=== PATIENT | female | born 1945 | race Caucasian/White ===

== ENCOUNTER 2016-08-28 10:49 | Observation (INO) ==
--- NOTE | 2016-08-28 10:55 | Emergency Department Note ---
Disposition Clinical Impression: Urinary tract infection, Hyperglycemia, Bradycardia, Frail elderly, Leukocytosis, Weakness, CAD (coronary artery disease), Cough Disposition: Admitted As Inpatient Referrals: Clifton Shannon Jr, MD [Primary Care Provider] - Forms: ED Satisfaction Letter General Adult HPI - General Chief complaint: ED Urogenital-Female Stated complaint: passing blood Time Seen by Provider: 08/28/16 10:55 Source: patient, family Limitations: no limitations - History of Present Illness HPI Narrative: 71-year-old female reports emergency department complaining of discolored urine and burning urination. The patient denies any abdominal pain. There is no history of back pain or flank pain. No vomiting or diarrhea. The patient has had no chest pain or shortness of breath but does describe a cough. She has had a runny nose and nasal congestion. Her relatives wonder if she has " walking pneumonia". There is no history of leg swelling or pain or coughing up blood. No fevers. No trouble walking talking hearing seeing or speaking, there is no history or and anticoagulation therapy. She states that her urine looked bloody. She has never had a kidney stone. She denies any pain. The patient describes urinary symptomatology for the last several days. There is no history of acute back pain, no weakness or numbness in the arms or legs, no confusion or any other complaint or concern. Pain Scale: 8 - Related Data Previous Rx's Medication Instructions Recorded Ciprofloxacin HCl [Cipro] 500 mg PO 1-2XD #20 tablet 02/02/15 Hydrocodone/Acetaminophen [[place] 1 tab PO Q6H PRN #20 tab 02/02/15 5-325 Tablet] Allergies Allergy/AdvReac Type Severity Reaction Status Date / Time Sulfa (Sulfonamide Allergy Hives Verified 02/02/15 10:57 Antibiotics) All systems ED: reviewed and negative except as stated. Past Medical History - Past Medical History Medical history: Reports: hyperlipidemia, hypertension, myocardial infarction Surgical history: Reports: cholecystectomy, other Psychiatric history: Reports: no psych history - Social History Smoking Status: Former smoker Smokeless Tobacco Status: No Alcohol use: Reports: none Drug use: Reports: none Physical Exam - General Limitations: no limitations General appearance: alert, in no apparent distress - Head Head exam: atraumatic, normocephalic, normal inspection - Eye Eye exam: Present: normal appearance, PERRL, EOMI. Absent: scleral icterus, conjunctival injection, miosis, mydriasis - ENT ENT exam: normal exam, normal oropharynx, mucous membranes moist - Neck Neck exam: Present: normal inspection, full ROM, trachea midline. Absent: meningismus - Chest Chest inspection: Present: symmetric chest wall rise. Absent: tenderness - Respiratory Respiratory exam: Present: normal lung sounds bilaterally. Absent: respiratory distress, prolonged expiratory phase - Abdominal Exam Abdominal exam: Present: soft, Non-Tender, normal bowel sounds. Absent: tenderness, distention, guarding, rebound, rigidity, pulsatile mass - Extremities Exam Extremities exam: Present: normal inspection, full ROM, normal capillary refill. Absent: tenderness, pedal edema, joint swelling, calf tenderness - Expanded Lower Extremity Exam Lower leg exam: Absent: Homans' sign Neurovascular/Tendon exam: Present: normal capillary refill. Absent: motor deficit, sensory deficit, tendon deficit, extremity cold to touch, pallor - Back Exam Back exam: Present: normal inspection, full ROM. Absent: tenderness, CVA tenderness (R), CVA tenderness (L), vertebral tenderness - Neurological Exam Neurological exam: Present: alert, oriented X3, CN II-XII intact. Absent: motor sensory deficit - Psychiatric Psychiatric exam: Present: normal affect, normal mood - Skin Skin exam: Present: warm, dry, intact, normal color. Absent: rash, cyanosis, diaphoresis, erythema, pallor, mottled Course Vital Signs Temperature 97.6 F 08/28/16 10:51 Pulse Rate 76 08/28/16 10:51 Respiratory Rate 18 08/28/16 10:51 Blood Pressure 175/95 08/28/16 10:51 O2 Sat by Pulse Oximetry 97 08/28/16 10:51 Temperature 97.6 F 08/28/16 10:51 Pulse Rate 49 08/28/16 13:31 Respiratory Rate 18 08/28/16 13:31 Blood Pressure 149/65 08/28/16 13:31 O2 Sat by Pulse Oximetry 93 08/28/16 13:31 Oxygen Delivery Oxygen Delivery Room Air Medical Decision Making - MDM Narrative Medical decision making narrative: The patient is elderly, she has a history of coronary artery disease and is significantly bradycardic in the ED. She has been feeling weak and has evident urinary changes suggestive of significant infection. She has a leukocytosis as well as a urinalysis which is so bloody and discolored but it cannot be properly evaluated on microscopy. Urine cultures were sent. IV access was established. Fluids and antibiotics were given. Based on the patient's age, multiple comorbidities, significant UTI, and sustained bradycardia, I felt it appropriate to admit the patient to the hospital. The patient does take a beta gayle. I discussed the case with the hospitalist operations inspector who ihas accepted the patient to their care. The patient is currently stable. She is not describing chest pain but has had a significant cough. - Lab Data Lab results reviewed: Yes I reviewed the patient's lab results. Result diagrams: 08/28/16 11:42 08/28/16 11:42 Lab Results 08/28/16 08/28/16 08/28/16 Range/Units 11:12 11:42 11:42 WBC 14.4 H (4.3-11.1) K/mcL RBC 5.03 H (3.82-4.97) M/mcL Hgb 15.0 (11.5-15.4) g/dL Hct 44.1 (35.3-44.9) % MCV 87.7 (83.0-100.0) fL MCH 29.8 (28.0-33.3) pg MCHC 34.0 (31.6-35.5) g/dL RDW 12.7 (11.5-14.5) % Plt Count 214 (140-400) K/mcL MPV 10.5 (9.4-12.4) fL Immature Gran % 0.3 (0-4) % Seg Neutrophils % 56.7 % Lymphocytes % 31.9 % Monocytes % 6.8 % Eosinophils % 3.9 % Basophils % 0.4 % Neutrophils # 8.1 (1.6-8.9) K/mcL Lymphocytes # 4.6 (0.6-4.6) K/mcL Monocytes # 1.0 (0.0-1.3) K/mcL Eosinophils # 0.6 (0.0-0.6) K/mcL Basophils # 0.1 (0.0-0.2) K/mcL Sodium 141 (136-145) mEq/L Potassium 3.7 (3.5-4.5) mEq/L Chloride 105 (98-109) mEq/L Carbon Dioxide 28 (19-29) mEq/L BUN 12 (7-20) mg/dL Creatinine 0.77 (0.57-1.11) mg/dL Est GFR ( Amer) > 60 (> 60) Est GFR (Non-Af Amer) > 60 (> 60) BUN/Creatinine Ratio 16 (6-26) Glucose 151 H (70-99) mg/dL Calculated Osmolality 295 (280-300) Lactic Acid (0.5-2.2) mmol/L Calcium 9.4 (8.6-10.8) mg/dL Creatine Kinase 109 (29-168) Units/L Troponin I (0-0.03) ng/mL C-Reactive Protein 2 (Less than 5) mg/L B-Natriuretic Peptide (0-100) pg/mL Urine Color Brown (Yellow) Urine Clarity Cloudy A (Clear) Urine pH 6.0 (5.0-8.0) pH Units Ur Specific [place] 1.020 (1.010-1.025) Urine Protein 100 H (Neg-Trace) mg/dL Urine Glucose (UA) Normal (Normal) mg/dL Urine Ketones Negative (Negative) mg/dL Urine Blood Large H (Negative) Urine Nitrite Negative (Negative) Urine Bilirubin Negative (Negative) Urine Urobilinogen Normal (Normal) mg/dL Ur Leukocyte Esterase Small H (Negative) Ur Culture Indicated? YES A (NO) 08/28/16 08/28/16 08/28/16 Range/Units 11:42 11:42 11:42 WBC (4.3-11.1) K/mcL RBC (3.82-4.97) M/mcL Hgb (11.5-15.4) g/dL Hct (35.3-44.9) % MCV (83.0-100.0) fL MCH (28.0-33.3) pg MCHC (31.6-35.5) g/dL RDW (11.5-14.5) % Plt Count (140-400) K/mcL MPV (9.4-12.4) fL Immature Gran % (0-4) % Seg Neutrophils % % Lymphocytes % % Monocytes % % Eosinophils % % Basophils % % Neutrophils # (1.6-8.9) K/mcL Lymphocytes # (0.6-4.6) K/mcL Monocytes # (0.0-1.3) K/mcL Eosinophils # (0.0-0.6) K/mcL Basophils # (0.0-0.2) K/mcL Sodium (136-145) mEq/L Potassium (3.5-4.5) mEq/L Chloride (98-109) mEq/L Carbon Dioxide (19-29) mEq/L BUN (7-20) mg/dL Creatinine (0.57-1.11) mg/dL Est GFR ( Amer) (> 60) Est GFR (Non-Af Amer) (> 60) BUN/Creatinine Ratio (6-26) Glucose (70-99) mg/dL Calculated Osmolality (280-300) Lactic Acid 2.1 (0.5-2.2) mmol/L Calcium (8.6-10.8) mg/dL Creatine Kinase (29-168) Units/L Troponin I 0.01 (0-0.03) ng/mL C-Reactive Protein (Less than 5) mg/L B-Natriuretic Peptide 66 (0-100) pg/mL Urine Color (Yellow) Urine Clarity (Clear) Urine pH (5.0-8.0) pH Units Ur Specific [place] (1.010-1.025) Urine Protein (Neg-Trace) mg/dL Urine Glucose (UA) (Normal) mg/dL Urine Ketones (Negative) mg/dL Urine Blood (Negative) Urine Nitrite (Negative) Urine Bilirubin (Negative) Urine Urobilinogen (Normal) mg/dL Ur Leukocyte Esterase (Negative) Ur Culture Indicated? (NO) - Radiology Data Radiology results reviewed: Yes I reviewed the patient's radiology results.
[2016-08-28 11:26] LABS: Bilirubin,Urine Negative (Negative); Blood,Urine Large (Negative); Clarity,Urine Cloudy (Clear); Glucose,Urine (UA) Normal (Normal); Ketones,Urine Negative (Negative); Leukocyte Esterase,Urine Small (Negative); Nitrite,Urine Negative (Negative); Protein,Urine 100 mg/dL (Neg-Trace); Urobilinogen,Urine Normal (Normal)
[2016-08-28 11:27] LABS: Color,Urine Brown (Yellow)
[2016-08-28 11:59] LABS: Basophils # 0.1 K/mcL (0.0-0.2); Basophils % 0.4 %; Eosinophils # 0.6 K/mcL (0.0-0.6); Eosinophils % 3.9 %; Hematocrit 44.1 % (35.3-44.9); Immature Granulocytes % 0.3 % (0-4); Lymphocytes # 4.6 K/mcL (0.6-4.6); Lymphocytes % 31.9 %; Mean Corpuscular Hemoglobin 29.8 pg (28.0-33.3); Mean Corpuscular Volume 87.7 fL (83.0-100.0); Mean Platelet Volume 10.5 fL (9.4-12.4); Monocytes % 6.8 %; Neutrophils # 8.1 K/mcL (1.6-8.9); Platelet Count 214 K/mcL (140-400); Red Blood Count 5.03 M/mcL (3.82-4.97); Red Cell Distribution Width 12.7 % (11.5-14.5); Segmented Neutrophils % 56.7 %
[2016-08-28 12:15] LABS: BUN/Creatinine Ratio 16 (6-26); Blood Urea Nitrogen 12 mg/dL (7-20); C-Reactive Protein 2 mg/L (Less than 5); Calcium 9.4 mg/dL (8.6-10.8); Carbon Dioxide 28 mEq/L (19-29); Chloride 105 mEq/L (98-109); Creatine Kinase 109 Units/L (29-168); Glucose 151 mg/dL (70-99); Osmolality,Calculated 295 (280-300); Potassium 3.7 mEq/L (3.5-4.5); Sodium 141 mEq/L (136-145); eGFR For African Americans > 60 (> 60); eGFR For Non-African Americans > 60 (> 60)
[2016-08-28] MEDS ORDERED: Naloxone 0.4 MG/ML INJ IVP PRN (16:17)
[2016-08-28] MEDS ORDERED: Acetaminophen 325 MG TABLET PO PRN (16:17)
[2016-08-28] MEDS ORDERED: Nitroglycerin 0.4 MG TAB.SUBL SL PRN (16:19)
[2016-08-28] MEDS ORDERED: Albuterol 2.5 MG/3 ML NEBULIZER IH PRN (16:23)
--- NOTE | 2016-08-28 16:27 | Internal Med History&Physical ---
<Cher Trejo - Last Filed: 08/28/16 16:51> Date of Encounter: 08/28/16 Time of Encounter: 16:24 Assessment and Plan (1) Urinary tract infection Current visit: Yes Status: Acute Patient reports dysuria for the last 2-3 days, with blood in her urine this morning. UA positive for infection. No flank pain or CVA tenderness. WBC elevated to 14.4, afebrile. Hold plavix for hematuria. IV fluids 0.9NS at 75mL/hr Rocephin IVPB daily Qualifiers: Urinary tract infection type: acute cystitis Hematuria presence: with hematuria Qualified Code(s): N30.01 - Acute cystitis with hematuria (2) Cough Current visit: Yes Status: Acute Patient reporting productive cough and congestion for the last 2-3 days along with some shortness of breath. Lungs with expiratory rhonchi on exam. CXR show no acute cardiopulmonary disease. She is satting 94-97% on room air. Patient with significant smoking history, but has never been diagnosed with COPD. Will treat her with duoneb treatments QID Albuterol nebulizer Q2hr PRN titrate oxygen to maintain O2 saturation > 92%. (3) Bradycardia Current visit: Yes Status: Acute Patient noted to have bradycardia with HR in 40s-50s. Patient asymptomatic, denies any lightheadedness, dizzyness, palpitations. Upon review of records, patient's heart rate has been bradycardic consistently over the last few years with 05/20/15 HR 46, 01/06/16 HR 53 and 07/07/16 HR of 54. Patient on metoprolol 50mg BID. 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 (4) CAD (coronary artery disease) Current visit: Yes Status: Acute Patient with history of NM and stents to RCA in 2012. She denies any chest pain. She is on aspirin, plavix, metoprolol, and lipitor. Holding metoprolol for bradycardia. Hold plavix for hematuria. She is over 3 years out from her stent and may not need to continue Plavix. Continue other home doses of medications. Qualifiers: Coronary Disease-Associated Artery/Lesion type: [place] artery [place] vs. transplanted heart: [place] heart Associated angina: angina presence unspecified Qualified Code(s): I25.10 - Atherosclerotic heart disease of [place] coronary artery without angina pectoris (5) Borderline diabetes Current visit: Yes Status: Acute Patient reports she is "borderline" diabetic. Glucose 151 on Chemistry labs today. Check Hgb A1c diabetic diet check blood sugars ACHS sliding scale correction dose hypoglycemic protocol. (6) DVT prophylaxis Current visit: Yes Status: Acute Ambulate with assistance anti-embolic stockings pharmacologic prophylaxis contraindicated in active bleed (hematuria) Internal Medicine - H&P: HPI Chief complaint: blood in urine, cough Admitted From: Emergency Dept Plans for Post Hospital Care: Home History of present illness: Ms. Hernandez is a 71 year old female with hypertension, hyperlipidemia, coronary artery disease, borderline diabetes who presents to the emergency department today with complaints of blood in her urine. She reports that for the past 2-3 days she has been having pain and burning with urination in addition to that she is complaining of congestion and runny nose and productive cough for the last 2-3 days as well as some shortness of breath. Today when she woke up she was having bloody urine and that when she decided to come to the emergency department. She denies any chest pain or palpitations, she denies any headaches or lightheadedness. She does report decreased appetite over the last few days as well. Evaluation in the emergency department revealed elevated white blood cell count of 14.4. Urinalysis was positive for UTI. Troponin was negative at 0.01, BNP was normal at 66. Lactate was mildly elevated at 2.1. She was noted to be bradycardic with heart rate in the 40s to 50s. On review of previous records it appears that her heart rate always runs in the 40s to 50s at outpatient visits. On exam, patient is alert and oriented, in no acute distress. Lungs have bilateral rhonchi and expiration. Heart has regular rhythm. Bradycardia. Abdomen is soft, nontender. Past Med Surg Social Fam HX - Past Medical History Medical history: coronary artery disease, hyperlipidemia, hypertension, myocardial infarction Psychiatric history: no psych history - Past Surgical History Surgical History: angioplasty/stent, cholecystectomy, other - Social History Smoking Status: Former smoker (45 pack year history) Smokeless Tobacco Status: No Alcohol use: none Drug use: none - Family History Mother Name: Lyubov Dunn Age: 65 Family Member Ethnicity: Non- Living Status: Age at : 65 Cause of : stomach cancer Maternal Grandfather Living Status: Hx Family Cancer: Yes Sister Living Status: Still Living Hx Family Cardiac Disorders: Yes Internal Medicine - H&P: Meds Aspirin Enteric Coated [Aspirin EC] 81 mg PO DAILY 08/28/16 [History] Atorvastatin Calcium [Lipitor] 80 mg PO HS 08/28/16 [History] Cholecalciferol (D-3) [Vitamin D] 1,000 unit PO DAILY 08/28/16 [History] Clopidogrel [Plavix] 75 mg PO DAILY 08/28/16 [History] Hydrochlorothiazide 25 mg PO DAILY 08/28/16 [History] Metoprolol [Lopressor] 50 mg PO BID 08/28/16 [History] Nitroglycerin [Nitrostat] 0.4 mg SL Q5M PRN 08/28/16 [History] [place]-3/Dha/Epa/Fish Oil [Fish Oil 1,000 mg Softgel] 1,000 mg PO DAILY 08/28/16 [History] Vitamin A 10,000 unit PO DAILY 08/28/16 [History] Allergies Sulfa (Sulfonamide Antibiotics) Allergy (Verified 02/02/15 10:57) Hives All Systems PM: A 10-system review of systems was performed and is negative for pertinent findings except as documented above in the HPI. - Constitutional Constitutional: no chills, no fever(s), no night sweats - EENT Eyes: no change in vision, no discharge, no pain, no photophobia Ears: no ear discharge, no ear pain, no tinnitus Nose, mouth and throat: nasal congestion, nasal discharge, no dysphagia, no neck pain, no sore throat - Cardiovascular Cardiovascular ROS IM: dyspnea, no chest pain, no diaphoresis, no lightheadedness, no palpitations, no syncope - Respiratory Respiratory: cough, dyspnea, excessive phlegm production, change in phlegm color , no wheezing - Gastrointestinal Gastrointestinal: no abdominal pain, no diarrhea, no hematemesis, no hematochezia, no melena, no nausea, no vomiting - Genitourinary Genitourinary: dysuria, hematuria, no change in urinary stream, no flank pain - Musculoskeletal Musculoskeletal ROS IM: no numbness, no tingling - Integumentary Integumentary IM: no rash, no unusual bruising - Neurological Neurological ROS: no confusion, no convulsions, no focal weakness, no numbness, no tingling, no tremor(s) - Hematologic/Lymphatic Hematologic/Lymphatic: no easy bruising - Constitutional Vitals: Temp Pulse Resp BP Pulse Ox 97.6 F 46 18 143/73 96 08/28/16 10:51 08/28/16 14:30 08/28/16 15:49 08/28/16 15:49 08/28/16 15:47 General appearance: Present: A&O X 3, pleasant, no acute distress - Head Head exam: Present: atraumatic, normocephalic - Eye Eye exam: Present: PERRL, conjuntiva pink, sclera anicteric Pupils: Present: PERRL - Neck Neck exam general surgery: Present: supple, trachea midline. Absent: lymphadenopathy - Respiratory Respiratory exam: Present: rhonchi. Absent: accessory muscle use, rales, wheezes - Cardiovascular Cardiovascular exam: Present: bradycardia, +S1, +S2. Absent: diastolic murmur, gallop, rubs, systolic murmur - GI/Abdominal GI/Abdominal exam: Present: normal bowel sounds, soft, no peritoneal signs. Absent: distended, tenderness - Extremities Exam Extremities exam: Present: warm, radial pulses palpable and symetrical. Absent : calf tenderness, cyanotic, pedal edema - Neurological Exam Neurological exam: Present: CN II-XII intact, oriented X3, no focal deficits. Absent: facial droop, speech deficit - Skin Skin exam: Present: dry, intact Internal Med - H&P Results - Labs CBC & Chem 7: 08/28/16 11:42 08/28/16 11:42 Labs: All Lab Results (24 Hours) 08/28/16 08/28/16 08/28/16 Range/Units 11:12 11:42 11:42 WBC 14.4 H (4.3-11.1) K/mcL RBC 5.03 H (3.82-4.97) M/mcL Hgb 15.0 (11.5-15.4) g/dL Hct 44.1 (35.3-44.9) % MCV 87.7 (83.0-100.0) fL MCH 29.8 (28.0-33.3) pg MCHC 34.0 (31.6-35.5) g/dL RDW 12.7 (11.5-14.5) % Plt Count 214 (140-400) K/mcL MPV 10.5 (9.4-12.4) fL Immature Gran % 0.3 (0-4) % Seg Neutrophils % 56.7 % Lymphocytes % 31.9 % Monocytes % 6.8 % Eosinophils % 3.9 % Basophils % 0.4 % Neutrophils # 8.1 (1.6-8.9) K/mcL Lymphocytes # 4.6 (0.6-4.6) K/mcL Monocytes # 1.0 (0.0-1.3) K/mcL Eosinophils # 0.6 (0.0-0.6) K/mcL Basophils # 0.1 (0.0-0.2) K/mcL Sodium 141 (136-145) mEq/L Potassium 3.7 (3.5-4.5) mEq/L Chloride 105 (98-109) mEq/L Carbon Dioxide 28 (19-29) mEq/L BUN 12 (7-20) mg/dL Creatinine 0.77 (0.57-1.11) mg/dL Est GFR ( Amer) > 60 (> 60) Est GFR (Non-Af Amer) > 60 (> 60) BUN/Creatinine Ratio 16 (6-26) Glucose 151 H (70-99) mg/dL Calculated Osmolality 295 (280-300) Lactic Acid (0.5-2.2) mmol/L Calcium 9.4 (8.6-10.8) mg/dL Creatine Kinase 109 (29-168) Units/L Troponin I (0-0.03) ng/mL C-Reactive Protein 2 (Less than 5) mg/L B-Natriuretic Peptide (0-100) pg/mL Urine Color Brown (Yellow) Urine Clarity Cloudy A (Clear) Urine pH 6.0 (5.0-8.0) pH Units Ur Specific [place] 1.020 (1.010-1.025) Urine Protein 100 H (Neg-Trace) mg/dL Urine Glucose (UA) Normal (Normal) mg/dL Urine Ketones Negative (Negative) mg/dL Urine Blood Large H (Negative) Urine Nitrite Negative (Negative) Urine Bilirubin Negative (Negative) Urine Urobilinogen Normal (Normal) mg/dL Ur Leukocyte Esterase Small H (Negative) Ur Culture Indicated? YES A (NO) 08/28/16 08/28/16 08/28/16 Range/Units 11:42 11:42 11:42 WBC (4.3-11.1) K/mcL RBC (3.82-4.97) M/mcL Hgb (11.5-15.4) g/dL Hct (35.3-44.9) % MCV (83.0-100.0) fL MCH (28.0-33.3) pg MCHC (31.6-35.5) g/dL RDW (11.5-14.5) % Plt Count (140-400) K/mcL MPV (9.4-12.4) fL Immature Gran % (0-4) % Seg Neutrophils % % Lymphocytes % % Monocytes % % Eosinophils % % Basophils % % Neutrophils # (1.6-8.9) K/mcL Lymphocytes # (0.6-4.6) K/mcL Monocytes # (0.0-1.3) K/mcL Eosinophils # (0.0-0.6) K/mcL Basophils # (0.0-0.2) K/mcL Sodium (136-145) mEq/L Potassium (3.5-4.5) mEq/L Chloride (98-109) mEq/L Carbon Dioxide (19-29) mEq/L BUN (7-20) mg/dL Creatinine (0.57-1.11) mg/dL Est GFR ( Amer) (> 60) Est GFR (Non-Af Amer) (> 60) BUN/Creatinine Ratio (6-26) Glucose (70-99) mg/dL Calculated Osmolality (280-300) Lactic Acid 2.1 (0.5-2.2) mmol/L Calcium (8.6-10.8) mg/dL Creatine Kinase (29-168) Units/L Troponin I 0.01 (0-0.03) ng/mL C-Reactive Protein (Less than 5) mg/L B-Natriuretic Peptide 66 (0-100) pg/mL Urine Color (Yellow) Urine Clarity (Clear) Urine pH (5.0-8.0) pH Units Ur Specific [place] (1.010-1.025) Urine Protein (Neg-Trace) mg/dL Urine Glucose (UA) (Normal) mg/dL Urine Ketones (Negative) mg/dL Urine Blood (Negative) Urine Nitrite (Negative) Urine Bilirubin (Negative) Urine Urobilinogen (Normal) mg/dL Ur Leukocyte Esterase (Negative) Ur Culture Indicated? (NO) - Diagnostic Studies Chest x-ray Additional comments: Chest X-Ray 08/28/16 11:18 IMPRESSION: Stable exam. No acute cardiopulmonary findings. D/ / Adelina Becker MD / Adelina Becker MD Interpreting Provider: Adelina Becker MD <RandaJaspreet T - Last Filed: 08/28/16 17:45> Date of Encounter: 08/28/16 Internal Medicine - H&P: HPI History of present illness: Ms. Hernandez is a 71 year old female All Systems PM: A 10-system review of systems was performed and is negative for pertinent findings except as documented above in the HPI. - Constitutional Vitals: Temp Pulse Resp BP Pulse Ox 97.4 F L 72 16 149/84 94 08/28/16 16:17 08/28/16 16:17 08/28/16 16:17 08/28/16 16:17 08/28/16 16:17 Internal Med - H&P Results - Labs CBC & Chem 7: 08/28/16 11:42 08/28/16 11:42 - Attending Attestation I examined this patient and my medical decision-making was reviewed with the PAINT SPECIALIST/PA/Advanced Practice Nurse/Resident Physician. I agree with the documented findings, disposition and treatment plan as described except to the extent set forth below. 71 F with HTN, HLD, CAD s/p NM on b-blockers presented with symptoms and signs of hemorrhagic cystitis. Labs and imaging suggest UTI. 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
[2016-08-28] MEDS ORDERED: *HR* Dextrose 50 % in Water (Syg) 50 ML SYRINGE IVP PRN (16:32)
[2016-08-28] MEDS ORDERED: D5% in Water 1,000 ML IVC PRN (16:32)
[2016-08-28] MEDS ORDERED: Dextrose Gel 15 GM PO PRN ×2 (16:32)
[2016-08-28] MEDS: Insulin LISPRO 300 UNITS/3 ML VIAL SQ SCH ×2 (17:12→21:28)
[2016-08-28] MEDS: 0.9 % Sodium Chloride 1,000 ML IVC SCH (17:22)
[2016-08-28] MEDS ORDERED: 0.9 % Sodium Chloride 500 ML IVC ONE (17:45)
[2016-08-28] MEDS: Ipratropium/Albuterol Neb 3 ML IH SCH ×2 (20:26→21:24)
[2016-08-29] MEDS: Ipratropium/Albuterol Neb 3 ML IH SCH ×4 (04:22→22:57)
[2016-08-29 04:49] LABS: Basophils # 0.1 K/mcL (0.0-0.2); Basophils % 0.5 %; Eosinophils # 0.4 K/mcL (0.0-0.6); Eosinophils % 3.9 %; Immature Granulocytes % 0.2 % (0-4); Lymphocytes % 48.1 %; Mean Corpuscular HGB Conc 33.8 g/dL (31.6-35.5); Mean Corpuscular Hemoglobin 30.2 pg (28.0-33.3); Mean Corpuscular Volume 89.2 fL (83.0-100.0); Mean Platelet Volume 10.7 fL (9.4-12.4); Monocytes % 9.9 %; Neutrophils # 3.9 K/mcL (1.6-8.9); Platelet Count 183 K/mcL (140-400); Red Blood Count 4.37 M/mcL (3.82-4.97); Red Cell Distribution Width 12.8 % (11.5-14.5); Segmented Neutrophils % 37.4 %
[2016-08-29 04:59] LABS: Hemoglobin 13.2 g/dL (11.5-15.4)
[2016-08-29 05:00] LABS: Hemoglobin A1C 6.9 %
[2016-08-29 05:08] LABS: BUN/Creatinine Ratio 21 (6-26); Blood Urea Nitrogen 16 mg/dL (7-20); Carbon Dioxide 24 mEq/L (19-29); Chloride 107 mEq/L (98-109); Glucose 147 mg/dL (70-99); Osmolality,Calculated 298 (280-300); Potassium 3.8 mEq/L (3.5-4.5); Sodium 142 mEq/L (136-145); eGFR For African Americans > 60 (> 60); eGFR For Non-African Americans > 60 (> 60)
[2016-08-29] MEDS: (Omega-3/Dha/Epa/Fish Oil [Fish Oil 1,000 Mg Softgel] PO SCH (08:40)
[2016-08-29] MEDS: Insulin LISPRO 300 UNITS/3 ML VIAL SQ SCH ×4 (08:43→21:50)
[2016-08-29] MEDS: 0.9 % Sodium Chloride 1,000 ML IVC SCH (08:45)
[2016-08-29] MEDS: hydroCHLOROthiazide 25 MG TABLET PO SCH (08:46)
[2016-08-29] MEDS: Aspirin Enteric Coated 81 MG Tablet PO SCH (08:46)
--- NOTE | 2016-08-29 10:37 | Internal Med Progress Note ---
<Raeann Escalante - Last Filed: 08/29/16 16:39> Date of Encounter: 08/29/16 Time of Encounter: 09:50 - Assessment and plan (1) Urinary tract infection Current Visit: Yes Status: Acute Assessment and plan: Suggested by clinical sx dysuria, UCx with LKE, Ucx did not show any organisms. 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 Cont to monitor. (3) CAD (coronary artery disease) Current Visit: Yes Status: Acute Assessment and plan: Cont ASA, Statin. BB on hold due to bradycardia. Qualifiers: Coronary Disease-Associated Artery/Lesion type: [place] artery [place] vs. transplanted heart: [place] heart Associated angina: angina presence unspecified Qualified Code(s): I25.10 - Atherosclerotic heart disease of [place] coronary artery without angina pectoris - Subjective Interval history: Pt seen/eval, endorses dysuria with burning sensation, no fever/chills, nvd. Does have some dyspnea and wheeze. - Constitutional Vitals: Temp Pulse Resp BP Pulse Ox 97.7 F 65 18 132/65 98 08/29/16 07:25 08/29/16 07:25 08/29/16 07:25 08/29/16 07:25 08/29/16 07:25 General appearance: Present: A&O X 3, pleasant, no acute distress - Head Head exam: Present: atraumatic, normocephalic - Eye Eye exam: Present: EOMI, sclera anicteric - ENT ENT exam: Present: mucous membranes moist - Neck Neck exam general surgery: Present: supple, trachea midline - Respiratory Respiratory exam: Present: wheezes (scant). Absent: accessory muscle use, rhonchi - Cardiovascular Cardiovascular exam: Present: bradycardia, +S1, +S2. Absent: JVD - GI/Abdominal GI/Abdominal exam: Present: soft, no peritoneal signs - Extremities Exam Extremities exam: Present: warm, radial pulses palpable and symetrical Internal Medicine: Result - Labs CBC & Chem 7: 08/29/16 04:32 08/29/16 04:32 Labs: Short CBC 08/29/16 Range/Units 04:32 WBC 10.5 (4.3-11.1) K/mcL Hgb 13.2 D (11.5-15.4) g/dL Hct 39.0 (35.3-44.9) % Plt Count 183 (140-400) K/mcL Neutrophils # 3.9 (1.6-8.9) K/mcL BMP 08/29/16 04:32 Sodium 142 Potassium 3.8 Chloride 107 Carbon Dioxide 24 BUN 16 Creatinine 0.78 Glucose 147 H Calcium 9.0 - VTE Documentation of Mechanical Device: Graduated compression elastic hosiery Consult Discharge Plan - Plan Referrals: Clifton Shannon Jr, MD [Primary Care Provider] - <Luciano Curry P - Last Filed: 08/29/16 19:03> Date of Encounter: 08/29/16 - Constitutional Vitals: Temp Pulse Resp BP Pulse Ox 97.6 F 63 18 145/83 94 08/29/16 15:58 08/29/16 15:58 08/29/16 16:29 08/29/16 16:29 08/29/16 16:29 Internal Medicine: Result - Labs CBC & Chem 7: 08/29/16 04:32 08/29/16 04:32 Labs: Short CBC 08/29/16 Range/Units 04:32 WBC 10.5 (4.3-11.1) K/mcL Hgb 13.2 D (11.5-15.4) g/dL Hct 39.0 (35.3-44.9) % Plt Count 183 (140-400) K/mcL Neutrophils # 3.9 (1.6-8.9) K/mcL BMP 08/29/16 04:32 Sodium 142 Potassium 3.8 Chloride 107 Carbon Dioxide 24 BUN 16 Creatinine 0.78 Glucose 147 H Calcium 9.0 Cardiac Enzymes 08/29/16 Range/Units 10:28 Troponin I 0.00 (0-0.03) ng/mL - Attending Attestation I examined this patient and my medical decision-making was reviewed with the VOLTAGE TESTER/PA/Advanced Practice Nurse/Resident Physician. I agree with the documented findings, disposition and treatment plan as described except to the extent set forth below.
--- NOTE | 2016-08-29 17:50 | Electrocardiograph Report ---
[address] [address] Test Date: 2016-08-28 Pat Name: Mercedes Hernandez Department: 103 Room: 2N4 Gender: F Vision Teacher: : 1945 Requested By: Porfirio Cabrera Order Number: [id number] Reading MD: Theo Barnard Measurements Intervals [place] Rate: 47 P: 85 NE: 176 QRS: 23 QRSD: 97 T: 32 QT: 437 QTc: 400 Interpretive Statements SINUS BRADYCARDIA Electronically Signed On 08-29-2016 17:48:28 EDT by Theo Barnard
[2016-08-30] MEDS: Ipratropium/Albuterol Neb 3 ML IH SCH ×2 (04:57→10:42)
[2016-08-30 06:07] LABS: BUN/Creatinine Ratio 21 (6-26); Blood Urea Nitrogen 16 mg/dL (7-20); Calcium 9.1 mg/dL (8.6-10.8); Carbon Dioxide 22 mEq/L (19-29); Chloride 108 mEq/L (98-109); Glucose 138 mg/dL (70-99); Osmolality,Calculated 295 (280-300); Potassium 3.6 mEq/L (3.5-4.5); Sodium 141 mEq/L (136-145); eGFR For African Americans > 60 (> 60); eGFR For Non-African Americans > 60 (> 60)
[2016-08-30 06:15] LABS: Basophils # 0.1 K/mcL (0.0-0.2); Basophils % 0.4 %; Eosinophils # 0.3 K/mcL (0.0-0.6); Eosinophils % 2.5 %; Hematocrit 39.8 % (35.3-44.9); Hemoglobin 13.1 g/dL (11.5-15.4); Immature Granulocytes % 0.4 % (0-4); Lymphocytes # 5.7 K/mcL (0.6-4.6); Lymphocytes % 42.5 %; Mean Corpuscular HGB Conc 32.9 g/dL (31.6-35.5); Mean Corpuscular Volume 88.2 fL (83.0-100.0); Mean Platelet Volume 10.7 fL (9.4-12.4); Monocytes # 1.1 K/mcL (0.0-1.3); Monocytes % 8.1 %; Neutrophils # 6.2 K/mcL (1.6-8.9); Platelet Count 203 K/mcL (140-400); Red Blood Count 4.51 M/mcL (3.82-4.97); Red Cell Distribution Width 12.9 % (11.5-14.5); Segmented Neutrophils % 46.1 %
[2016-08-30] MEDS: (Omega-3/Dha/Epa/Fish Oil [Fish Oil 1,000 Mg Softgel] PO SCH (09:21)
[2016-08-30] MEDS: Insulin LISPRO 300 UNITS/3 ML VIAL SQ SCH (09:23)
[2016-08-30] MEDS: Aspirin Enteric Coated 81 MG Tablet PO SCH (09:32)
[2016-08-30] MEDS: hydroCHLOROthiazide 25 MG TABLET PO SCH (09:32)
[2016-08-30 11:21] VITALS: BP 132/55
--- NOTE | 2016-08-30 11:32 | Discharge Summary ---
<Raeann Escalante - Last Filed: 08/30/16 11:30> Date of Encounter: 08/30/16 Time of Encounter: 10:00 - Discharge Diagnosis (1) Urinary tract infection Priority: Primary Status: Acute Qualifiers: Urinary tract infection type: acute cystitis Hematuria presence: with hematuria Qualified Code(s): N30.01 - Acute cystitis with hematuria (2) Bradycardia Priority: Secondary Status: Chronic (3) CAD (coronary artery disease) Priority: Secondary Status: Chronic Qualifiers: Coronary Disease-Associated Artery/Lesion type: [place] artery [place] vs. transplanted heart: [place] heart Associated angina: angina presence unspecified Qualified Code(s): I25.10 - Atherosclerotic heart disease of [place] coronary artery without angina pectoris - Discharge Medications Prescriptions: Cefdinir [Omnicef] 300 mg PO BID #8 capsule Home Medications: Aspirin Enteric Coated [Aspirin EC] 81 mg PO DAILY 08/28/16 [History] Atorvastatin Calcium [Lipitor] 80 mg PO HS 08/28/16 [History] Cholecalciferol (D-3) [Vitamin D] 1,000 unit PO DAILY 08/28/16 [History] Clopidogrel [Plavix] 75 mg PO DAILY 08/28/16 [History] Hydrochlorothiazide 25 mg PO DAILY 08/28/16 [History] Nitroglycerin [Nitrostat] 0.4 mg SL Q5M PRN 08/28/16 [History] [place]-3/Dha/Epa/Fish Oil [Fish Oil 1,000 mg Softgel] 1,000 mg PO DAILY 08/28/16 [History] Vitamin A 10,000 unit PO DAILY 08/28/16 [History] Cefdinir [Omnicef] 300 mg PO BID #8 capsule 08/30/16 [Rx] Allergies/Adverse Reactions: Allergies Sulfa (Sulfonamide Antibiotics) Allergy (Verified 02/02/15 10:57) Hives Date of admission: 08/28/16 15:10 Primary care physician: Clifton Shannon Jr, MD Discharging clinician: Danny Ramirez Anticipated date of discharge: 08/30/16 - Patient Status Disposition: Home, Self-Care Condition: Good Functional capacity at discharge: independent ambulation Overall status at discharge: patient is progressing back to baseline - Discharge Instructions Instructions: Cefdinir (By mouth), Urinary Tract Infection in Women (GEN) Follow Up With: Clifton Shannon Jr, MD [Primary Care Provider] - - Diet and Activity Activity: increase activity as tolerated Diet: advance to your usual diet Hospital course: Ms Hernandez is a 71 year old female. Patient would present to [facility] with chief concern: dysuria with burning sensation, accompanied by leukocytosis concerning for UTI. Comorbidities would include: CAD, sinus bradycardia in 50-60s, prior [place] with occlusion RCA in 2010 s/p TUNDE. Hospital course: Imaging studies including Chest X-Ray 08/28/16 11:18 IMPRESSION: Stable exam. No acute cardiopulmonary findings. Urinalysis would disclose cloudy contents with large blood, small LKE. Urine culture would not show any organisms. Patient was started on empiric therapy for UTI, Rocephin and tolerated well. She would experience clinical improvement with no more subjective fever or chills. Improvement in urinary symptoms. She would be monitored on telemetry, HR 50-60's, asymptomatic. 2013 Holter monitor 44bpm low while asleep, per last cardiology OV asymptomatic. At time of discharge, patient was clinically improved, hemodynamically stable, progressing to baseline, and agreeable with plan of care. Patient was advised to seek immediate medical attention for any new or worsening symptoms including but not limited to fever, chills, chest pain, chest pressure, dyspnea, cough, abdominal pain, nausea, vomiting, diarrhea, bloody stool, urine and the patient voiced understanding. Patient will follow-up with primary care physician: Dr. Clifton Shannon. Finish course of antibiotics cefdinir for 4 more days. - Time Spent with Patient Total time spent providing and/or coordinating discharge services: Greater than 30 minutes - Constitutional Vitals: Temp Pulse Resp BP Pulse Ox 98.3 F 59 16 132/55 93 08/30/16 07:39 08/30/16 07:39 08/30/16 07:39 08/30/16 07:39 08/30/16 07:39 General appearance: Present: A&O X 3, pleasant, no acute distress - Head Head exam: Present: atraumatic, normocephalic - Eye Eye exam: Present: EOMI, sclera anicteric - ENT ENT exam: Present: mucous membranes moist - Neck Neck exam general surgery: Present: supple, trachea midline - Respiratory Respiratory exam: Present: rhonchi. Absent: wheezes - Cardiovascular Cardiovascular exam: Present: +S1, +S2. Absent: JVD - GI/Abdominal GI/Abdominal exam: Present: soft, no peritoneal signs - Extremities Exam Extremities exam: Present: warm, radial pulses palpable and symetrical - VTE Documentation of Mechanical Device: Graduated compression elastic hosiery <Danny Ramirez - Last Filed: 08/30/16 17:46> Date of Encounter: 08/30/16 Date of admission: 08/28/16 15:10 Primary care physician: Clifton Shannon Jr, MD Hospital course: Ms. Hernandez is a 71 year old female - Time Spent with Patient Total time spent providing and/or coordinating discharge services: - Constitutional Vitals: Temp Pulse Resp BP Pulse Ox 98.3 F 59 16 132/55 94 08/30/16 07:39 08/30/16 07:39 08/30/16 10:42 08/30/16 07:39 08/30/16 10:42 - Attending Attestation I examined this patient and my medical decision-making was reviewed with the Resident Physician on 08/30/16. I agree with the documented findings, disposition and treatment plan as described except to the extent set forth below. Ms. Hernandez was admitted for symptoms related to UTI. She is feeling better and is at baseline. She feels ready to go home. Exam Alert. Comfortable Heart reg Lungs clear No edema Plan D/C home today Daughter at bedside and aware of plan/d/c.
== END 2016-08-30 12:27 | disposition home or self-care (01) ==
LOC: 2NENU 10:49 → EMEROO 10:49 → SUATTDRO 15:10 → 2NENU 15:51
PROVIDERS: ADMIT Nurse Practitioner Family; ATTEND Internal Medicine

== ENCOUNTER 2017-05-16 14:37 | Inpatient (IN) ==
--- NOTE | 2017-05-16 14:55 | Emergency Department Note ---
Disposition Clinical Impression: Urinary tract infection Qualifiers: Urinary tract infection type: acute cystitis Hematuria presence: without hematuria Qualified Code(s): N30.00 - Acute cystitis without hematuria Disposition: Admitted As Inpatient Condition: Good Referrals: Clifton Shannon Jr, MD [Primary Care Provider] - Forms: ED Satisfaction Letter, Work/School Release Time of Disposition: 16:49 General Adult HPI - General Chief complaint: ED General Medical Stated complaint: general Time Seen by Provider: 05/16/17 14:46 Source: patient, EMS Mode of arrival: ambulatory Limitations: no limitations Nursing Notes Reviewed: Yes Vital Signs Reviewed: Yes - History of Present Illness HPI Narrative: 72-year-old female whose had generalized body aches cough fever was seen at the urgent care was told that she had Wilver. Also complains of low back pain. 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 Radiation: other Pain Severity: moderate Pain Scale: 8 Quality: aching Consistency: constant Improves with: nothing Worsens with: movement Associated symptoms: Reports: cough Treatments Prior to Arrival: none - Related Data Home Medications Medication Instructions Recorded Confirmed Aspirin Enteric Coated [Aspirin EC] 81 mg PO DAILY 08/28/16 02/23/17 Atorvastatin Calcium [Lipitor] 80 mg PO HS 08/28/16 02/23/17 Cholecalciferol (D-3) [Vitamin D] 1,000 unit PO DAILY 08/28/16 02/23/17 Nitroglycerin [Nitrostat] 0.4 mg SL Q5M PRN 08/28/16 02/23/17 [place]-3/Dha/Epa/Fish Oil [Fish Oil 1,000 mg PO DAILY 08/28/16 02/23/17 1,000 mg Softgel] Vitamin A 10,000 unit PO DAILY 08/28/16 02/23/17 hydroCHLOROthiazide 25 mg PO DAILY 08/28/16 02/23/17 [Hydrochlorothiazide] metFORMIN [Glucophage] 500 mg PO BID 02/23/17 02/23/17 Previous Rx's Medication Instructions Recorded Ibuprofen [Motrin] 600 mg PO Q6HR PRN #60 tab 02/23/17 Allergies Allergy/AdvReac Type Severity Reaction Status Date / Time Sulfa (Sulfonamide Allergy Hives Verified 02/23/17 08:35 Antibiotics) All systems ED: reviewed and negative except as stated. Constitutional: Denies: fever, chills, weakness, weight change Eyes: Denies: eye pain, eye discharge, vision change ENT ED: Denies: ear pain, throat pain, dental pain, hearing loss, epistaxis, congestion, dysphagia Cardiovascular: Denies: chest pain, palpitations, dyspnea on exertion, edema, syncope Respiratory: Reports: cough. Denies: dyspnea, wheezes, hemoptysis, stridor Gastrointestinal: Denies: abdominal pain, nausea, vomiting, diarrhea, constipation, hematemesis, melena, hematochezia Genitourinary: Denies: dysuria, frequency, hematuria, discharge Musculoskeletal: Reports: arthralgia. Denies: back pain, neck pain, myalgia Integumentary: Denies: rash, abrasion, lesions Neurological: Denies: headache, weakness, numbness, paresthesias, confusion, abnormal gait, vertigo Psychiatric: Denies: anxiety, depression, suicidal thoughts, homicidal thoughts , auditory hallucinations, visual hallucinations Endocrine: Denies: fatigue Hematological/Lymphatic: Denies: easy bleeding, easy bruising Allergic/Immunologic: Denies: facial swelling, urticaria Past Medical History - Past Medical History Medical history: Reports: coronary artery disease, diabetes, hyperlipidemia, hypertension, myocardial infarction Surgical history: Reports: angioplasty/stent, cholecystectomy, other Psychiatric history: Reports: no psych history - Social History Smoking Status: Former smoker Smokeless Tobacco Status: No Alcohol use: Reports: none Drug use: Reports: none Physical Exam - General Limitations: no limitations General appearance: alert, in no apparent distress - Head Head exam: atraumatic, normocephalic, normal inspection - Eye Eye exam: Present: normal appearance, PERRL, EOMI - ENT ENT exam: normal exam, normal oropharynx, mucous membranes moist - Neck Neck exam: Present: normal inspection, full ROM, trachea midline - Chest Chest inspection: Present: normal inspection, symmetric chest wall rise - Respiratory Respiratory exam: Present: wheezes, prolonged expiratory phase - Cardiovascular Cardiovascular exam: Present: regular rate, normal rhythm, normal heart sounds - Abdominal Exam Abdominal exam: Present: soft, Non-Tender. Absent: tenderness, distention, guarding, rebound, rigidity - Extremities Exam Extremities exam: Present: normal inspection, full ROM. Absent: tenderness, pedal edema - Expanded Lower Extremity Exam Neurovascular/Tendon exam: Absent: motor deficit, sensory deficit, tendon deficit Gait: not tested/not observed - Back Exam Back exam: Present: normal inspection, full ROM. Absent: tenderness - Neurological Exam Neurological exam: Present: alert, oriented X3 - Psychiatric Psychiatric exam: Present: normal affect, normal mood - Skin Skin exam: Present: warm, dry, intact, normal color Course - Reevaluation(s) Reevaluation #1: 72-year-old with flank pain and fever, elevated white count of 12.8 white cells in the urine with the clinical symptoms of pyelonephritis. Time: 17:12 - Consultations Consultation #1: Discussed with Dr. Sneed, admit. Time: 17:11 Vital Signs Temperature 98.0 F 05/16/17 14:39 Pulse Rate 85 05/16/17 14:39 Respiratory Rate 16 05/16/17 14:39 Blood Pressure 142/81 05/16/17 14:39 O2 Sat by Pulse Oximetry 96 05/16/17 14:39 Temperature 98.0 F 05/16/17 14:39 Pulse Rate 85 05/16/17 14:39 Respiratory Rate 16 05/16/17 14:39 Blood Pressure 142/81 05/16/17 14:39 O2 Sat by Pulse Oximetry 96 05/16/17 14:39 Oxygen Delivery Oxygen Delivery Room Air Medical Decision Making - Lab Data Lab results reviewed: Yes I reviewed the patient's lab results. Result diagrams: 05/16/17 15:17 05/16/17 15:17 Lab Results 05/16/17 05/16/17 05/16/17 Range/Units 15:17 15:17 15:17 WBC 12.8 H (4.3-11.1) K/mcL RBC 4.95 (3.82-4.97) M/mcL Hgb 14.6 (11.5-15.4) g/dL Hct 43.9 (35.3-44.9) % MCV 88.7 (83.0-100.0) fL MCH 29.5 (28.0-33.3) pg MCHC 33.3 (31.6-35.5) g/dL RDW 12.7 (11.5-14.5) % Plt Count 226 (140-400) K/mcL MPV 10.2 (9.4-12.4) fL Immature Gran % 0.2 (0-4) % Seg Neutrophils % 52.2 % Lymphocytes % 30.9 % Monocytes % 15.3 % Eosinophils % 0.9 % Basophils % 0.5 % Neutrophils # 6.7 (1.6-8.9) K/mcL Lymphocytes # 4.0 (0.6-4.6) K/mcL Monocytes # 2.0 H (0.0-1.3) K/mcL Eosinophils # 0.1 (0.0-0.6) K/mcL Basophils # 0.1 (0.0-0.2) K/mcL Sodium 136 (136-145) mEq/L Potassium 3.3 L (3.5-5.1) mEq/L Chloride 98 (98-107) mEq/L Carbon Dioxide 28 (23-29) mEq/L BUN 10 (8-23) mg/dL Creatinine 0.77 (0.60-1.20) mg/dL Est GFR ( Amer) > 60 (> 60) Est GFR (Non-Af Amer) > 60 (> 60) BUN/Creatinine Ratio 13 (6-26) Glucose 201 H (70-105) mg/dL Calculated Osmolality 287 (280-300) Lactic Acid 2.1 (0.5-2.2) mmol/L Calcium 9.7 (8.6-10.3) mg/dL Urine Color (Yellow) Urine Clarity (Clear) Urine pH (5.0-8.0) pH Units Ur Specific [place] (1.010-1.025) Urine Protein (Neg-Trace) mg/dL Urine Glucose (UA) (Normal) mg/dL Urine Ketones (Negative) mg/dL Urine Blood (Negative) Urine Nitrite (Negative) Urine Bilirubin (Negative) Urine Urobilinogen (Normal) mg/dL Ur Leukocyte Esterase (Negative) Urine Microscopic RBC (0-3) per hpf Urine Microscopic WBC (0-3) per hpf Ur Squamous Epith Cells (None-Few) per lpf Urine Bacteria (None-Few) per hpf Hyaline Casts (None-Few) per lpf Ur Culture Indicated? (NO) 05/16/17 Range/Units 15:41 WBC (4.3-11.1) K/mcL RBC (3.82-4.97) M/mcL Hgb (11.5-15.4) g/dL Hct (35.3-44.9) % MCV (83.0-100.0) fL MCH (28.0-33.3) pg MCHC (31.6-35.5) g/dL RDW (11.5-14.5) % Plt Count (140-400) K/mcL MPV (9.4-12.4) fL Immature Gran % (0-4) % Seg Neutrophils % % Lymphocytes % % Monocytes % % Eosinophils % % Basophils % % Neutrophils # (1.6-8.9) K/mcL Lymphocytes # (0.6-4.6) K/mcL Monocytes # (0.0-1.3) K/mcL Eosinophils # (0.0-0.6) K/mcL Basophils # (0.0-0.2) K/mcL Sodium (136-145) mEq/L Potassium (3.5-5.1) mEq/L Chloride (98-107) mEq/L Carbon Dioxide (23-29) mEq/L BUN (8-23) mg/dL Creatinine (0.60-1.20) mg/dL Est GFR ( Amer) (> 60) Est GFR (Non-Af Amer) (> 60) BUN/Creatinine Ratio (6-26) Glucose (70-105) mg/dL Calculated Osmolality (280-300) Lactic Acid (0.5-2.2) mmol/L Calcium (8.6-10.3) mg/dL Urine Color Dark Yellow (Yellow) Urine Clarity Cloudy A (Clear) Urine pH 6.0 (5.0-8.0) pH Units Ur Specific [place] 1.028 H (1.010-1.025) Urine Protein 100 H (Neg-Trace) mg/dL Urine Glucose (UA) 250 H (Normal) mg/dL Urine Ketones Negative (Negative) mg/dL Urine Blood Moderate H (Negative) Urine Nitrite Negative (Negative) Urine Bilirubin Small H (Negative) Urine Urobilinogen Normal (Normal) mg/dL Ur Leukocyte Esterase Trace H (Negative) Urine Microscopic RBC 3-5 H (0-3) per hpf Urine Microscopic WBC 5-15 H (0-3) per hpf Ur Squamous Epith Cells Many H (None-Few) per lpf Urine Bacteria Moderate H (None-Few) per hpf Hyaline Casts None Seen (None-Few) per lpf Ur Culture Indicated? NO (NO) - Radiology Data Radiology results reviewed: Yes I reviewed the patient's radiology results. Chest X-Ray 05/16/17 14:49 IMPRESSION: 1. No active pulmonary disease. D/ / Valeriano Gusman MD / Valeriano Gusman MD Interpreting Provider: Valeriano Gusman MD
[2017-05-16 15:25] LABS: Basophils # 0.1 K/mcL (0.0-0.2); Basophils % 0.5 %; Eosinophils # 0.1 K/mcL (0.0-0.6); Eosinophils % 0.9 %; Hematocrit 43.9 % (35.3-44.9); Hemoglobin 14.6 g/dL (11.5-15.4); Immature Granulocytes % 0.2 % (0-4); Lymphocytes % 30.9 %; Mean Corpuscular HGB Conc 33.3 g/dL (31.6-35.5); Mean Corpuscular Hemoglobin 29.5 pg (28.0-33.3); Mean Corpuscular Volume 88.7 fL (83.0-100.0); Mean Platelet Volume 10.2 fL (9.4-12.4); Monocytes % 15.3 %; Neutrophils # 6.7 K/mcL (1.6-8.9); Platelet Count 226 K/mcL (140-400); Red Blood Count 4.95 M/mcL (3.82-4.97); Red Cell Distribution Width 12.7 % (11.5-14.5); Segmented Neutrophils % 52.2 %
[2017-05-16 15:40] LABS: BUN/Creatinine Ratio 13 (6-26); Blood Urea Nitrogen 10 mg/dL (8-23); Calcium 9.7 mg/dL (8.6-10.3); Carbon Dioxide 28 mEq/L (23-29); Chloride 98 mEq/L (98-107); Glucose 201 mg/dL (70-105); Osmolality,Calculated 287 (280-300); Potassium 3.3 mEq/L (3.5-5.1); Sodium 136 mEq/L (136-145); eGFR For African Americans > 60 (> 60); eGFR For Non-African Americans > 60 (> 60)
[2017-05-16 15:52] LABS: Bilirubin,Urine Small (Negative); Blood,Urine Moderate (Negative); Clarity,Urine Cloudy (Clear); Color,Urine Dark Yellow (Yellow); Glucose,Urine (UA) 250 mg/dL (Normal); Ketones,Urine Negative (Negative); Leukocyte Esterase,Urine Trace (Negative); Nitrite,Urine Negative (Negative); Protein,Urine 100 mg/dL (Neg-Trace); Specific Gravity,Urine 1.028 (1.010-1.025); Urobilinogen,Urine Normal (Normal)
[2017-05-16 15:54] LABS: Bacteria,Urine Moderate per hpf (None-Few); Hyaline Casts,Urine None Seen per lpf (None-Few); Squamous Epithelial Cell,Urine Many per lpf (None-Few)
[2017-05-16] MEDS ORDERED: Levofloxacin 500 MG/100 ML 500 MG/100 ML BAG IVPB ONE (16:45)
[2017-05-16] MEDS ORDERED: Naloxone 0.4 MG/ML INJ IVP PRN (18:34)
[2017-05-16] MEDS ORDERED: Ondansetron 4 MG/2 ML VIAL IVP PRN (18:34)
--- NOTE | 2017-05-16 18:46 | Internal Med History&Physical ---
Addendum entered and electronically signed by Jacobo Mandujano 05/16/17 20:24: Hyperglycemia - Hx of DM and was on Metformin at home. - BS about 200 at ED. - Will check HgbA1c and adjust metformin dose according after DC. - Hold metformin while in hospital. Accu check AC+HS with mild SSI. Original Note: Date of Encounter: 05/16/17 Time of Encounter: 18:41 Assessment and Plan (1) Urinary tract infection Current visit: Yes Status: Acute UTI - Cx pending. - continue IV Levaquin. Qualifiers: Urinary tract infection type: acute cystitis Hematuria presence: without hematuria Qualified Code(s): N30.00 - Acute cystitis without hematuria (2) Acute bronchitis Current visit: Yes Status: Acute acute bronchitis - sputum Cx pending. - likely viral, no respiratory distress. supportive care Qualifiers: Bronchitis organism: unspecified organism Qualified Code(s): J20.9 - Acute bronchitis, unspecified (3) Conjunctivitis Current visit: Yes Status: Acute acute conjunctivitis - will send Cx. - current abx covering possible bacterial infection. Qualifiers: Conjunctivitis type: acute Acute conjunctivitis type: unspecified Laterality: bilateral Qualified Code(s): H10.33 - Unspecified acute conjunctivitis, bilateral (4) HTN (hypertension) Current visit: Yes Status: Chronic HTN - BP stable and continue current treatment. Qualifiers: Hypertension type: essential hypertension Qualified Code(s): I10 - Essential (primary) hypertension (5) Hyperlipidemia Current visit: Yes Status: Chronic HLP - continue current treatment. Qualifiers: Hyperlipidemia type: pure hypercholesterolemia Qualified Code(s): E78.00 - Pure hypercholesterolemia, unspecified; E78.0 - Pure hypercholesterolemia (6) Hyperglycemia Current visit: No Status: Chronic - blood sugar is normal at ED. - continue current treatment. (7) CAD (coronary artery disease) Current visit: No Status: Chronic - stable and continue current treatment. Qualifiers: Coronary Disease-Associated Artery/Lesion type: [place] artery [place] vs. transplanted heart: iroquois heart Associated angina: angina presence unspecified Qualified Code(s): I25.10 - Atherosclerotic heart disease of iroquois coronary artery without angina pectoris Internal Medicine - H&P: HPI Admitted From: Emergency Dept Plans for Post Hospital Care: Home History of present illness: Ms. Hernandez is a 72 year old female with PMH of HTN and CAD presented with cough, lethargy, and subjective fever since last Monday. She was in her usual health state and developed fever, cough and lack of energy since last Monday. She denies any sick contact and also got flu shot this year. She also has associate muscle pain. She stated that cough with white mucus. She also has mild dysuria, but denies urgency or frequency. She also has eye pain which she attributed to pink eye. She denies chest pain, palpitation, or dizziness. Past Med Surg Social Fam HX - Past Medical History Medical history: coronary artery disease, diabetes, hyperlipidemia, hypertension , myocardial infarction Psychiatric history: no psych history - Past Surgical History Surgical History: angioplasty/stent, cholecystectomy, other - Social History Smoking Status: Former smoker Smokeless Tobacco Status: No Alcohol use: none Drug use: none - Family History Mother Family Member Ethnicity: Non- Living Status: Maternal Grandfather Living Status: Hx Family Cancer: Yes Sister Living Status: Still Living Hx Family Cardiac Disorders: Yes Internal Medicine - H&P: Meds Aspirin Enteric Coated [Aspirin EC] 81 mg PO DAILY 08/28/16 [History] Atorvastatin Calcium [Lipitor] 80 mg PO HS 08/28/16 [History] Cholecalciferol (D-3) [Vitamin D] 1,000 unit PO DAILY 08/28/16 [History] [place]-3/Dha/Epa/Fish Oil [Fish Oil 1,000 mg Softgel] 1,000 mg PO DAILY 08/28/16 [History] Vitamin A 10,000 unit PO DAILY 08/28/16 [History] hydroCHLOROthiazide [Hydrochlorothiazide] 25 mg PO DAILY 08/28/16 [History] metFORMIN [Glucophage] 500 mg PO BID 02/23/17 [History] Metoprolol [Lopressor] 25 mg PO BID 05/16/17 [History] 3 Allergy/AdvReac Type Severity Reaction Status Date / Time Sulfa (Sulfonamide Allergy Hives Verified 02/23/17 08:35 Antibiotics) All Systems PM: A 10-system review of systems was performed and is negative for pertinent findings except as documented above in the HPI. Review of systems: REVIEW OF SYSTEMS: CONSTITUTIONAL: No weight loss or chills. HEENT: Eyes: No visual loss, blurred vision, double vision. Ears, Nose, Throat : No hearing loss, sneezing, congestion, runny nose or sore throat. SKIN: No rash or itching. CARDIOVASCULAR: No chest pain, chest pressure or chest discomfort. No palpitations or edema. RESPIRATORY: No shortness of breath. GASTROINTESTINAL: No anorexia, nausea, vomiting or diarrhea. No abdominal pain or blood. GENITOURINARY: No dysuria, urgency, or frequency. NEUROLOGICAL: No headache, dizziness, syncope, paralysis, ataxia, numbness or tingling in the extremities. No change in bowel or bladder control. MUSCULOSKELETAL: No muscle, back pain, joint pain or stiffness. HEMATOLOGIC: No anemia, bleeding or bruising. LYMPHATICS: No enlarged nodes. No history of splenectomy. PSYCHIATRIC: No history of depression or anxiety. ENDOCRINOLOGIC: No reports of sweating, cold or heat intolerance. No polyuria or polydipsia. - Constitutional Vitals: Temp Pulse Resp BP Pulse Ox 98.0 F 85 16 142/81 96 05/16/17 14:39 05/16/17 14:39 05/16/17 14:39 05/16/17 14:39 05/16/17 14:39 Exam: PHYSICAL EXAMINATION: GENERAL APPEARANCE: The patient is alert, oriented and in no acute distress. HEENT: Head is normocephalic. The sinuses are non-tender. conjunctiva are red with yellow drainage.. The nares are patent. Oropharynx clear without lesions. NECK: Supple without lymphadenopathy. HEART: Regular rate and rhythm. LUNGS: No crackles or wheezes are heard. ABDOMEN: Soft, non-tender, non-distended with good bowel sounds heard. Inguinal area is normal. EXTREMITIES: Without cyanosis, clubbing or edema. NEUROLOGICAL: Gross non-focal. SKIN: Warm and dry without any rash. Internal Med - H&P Results - Labs CBC & Chem 7: 05/16/17 15:17 05/16/17 15:17 Labs: Short CBC 05/16/17 Range/Units 15:17 WBC 12.8 H (4.3-11.1) K/mcL Hgb 14.6 (11.5-15.4) g/dL Hct 43.9 (35.3-44.9) % Plt Count 226 (140-400) K/mcL Neutrophils # 6.7 (1.6-8.9) K/mcL BMP 05/16/17 15:17 Sodium 136 Potassium 3.3 L Chloride 98 Carbon Dioxide 28 BUN 10 Creatinine 0.77 Glucose 201 H Calcium 9.7 Urine 05/16/17 Range/Units 15:41 Urine Color Dark Yellow (Yellow) Urine Clarity Cloudy A (Clear) Urine pH 6.0 (5.0-8.0) pH Units Ur Specific [place] 1.028 H (1.010-1.025) Urine Protein 100 H (Neg-Trace) mg/dL Urine Glucose (UA) 250 H (Normal) mg/dL - Impressions ITS Impressions Chest X-Ray 05/16/17 14:49 IMPRESSION: 1. No active pulmonary disease. D/ / Valeriano Gusman MD / Valeriano Gusman MD Interpreting Provider: Valeriano Gusman MD
[2017-05-16] MEDS ORDERED: D5% in Water 1,000 ML IVC PRN (19:03)
[2017-05-16] MEDS ORDERED: *HR* Dextrose 50 % in Water (Syg) 50 ML SYRINGE IVP PRN (19:03)
[2017-05-16] MEDS ORDERED: Dextrose Gel 15 GM/37.5 ML TUBE PO PRN ×2 (19:03)
[2017-05-16] MEDS ORDERED: Levofloxacin 250 MG/50 ML 250 MG/50 ML BAG IVPB ONE (19:31)
[2017-05-16] MEDS ORDERED: *HR* Metformin 500 MG TABLET PO SCH (21:00)
[2017-05-16] MEDS: Levofloxacin 500 MG/100 ML 500 MG/100 ML BAG IVPB SCH (22:03)
[2017-05-16] MEDS: 0.9 % Sodium Chloride w KCl 20 MEQ/1,000 ML MLS IVC SCH (22:13)
[2017-05-16] MEDS: Aspirin Enteric Coated 81 MG Tablet PO SCH (22:16)
[2017-05-16] MEDS: (Fish Oil 1,000 Mg Softgel) PO SCH (22:17)
[2017-05-16] MEDS: VITAMIN A PO SCH (22:17)
[2017-05-16] MEDS: Cholecalciferol (D-3) 1,000 UNIT TABLET PO SCH (22:20)
[2017-05-16] MEDS: *HR* Heparin 5,000 UNIT/ML VIAL SQ SCH (22:34)
[2017-05-16] MEDS: Insulin LISPRO 300 UNITS/3 ML VIAL SQ SCH (23:00)
[2017-05-17] MEDS: Acetaminophen 325 MG TABLET PO PRN ×3 (00:08→23:09)
[2017-05-17 05:41] LABS: Hematocrit 40.4 % (35.3-44.9); Hemoglobin 13.4 g/dL (11.5-15.4); Mean Corpuscular HGB Conc 33.2 g/dL (31.6-35.5); Mean Corpuscular Hemoglobin 29.6 pg (28.0-33.3); Mean Corpuscular Volume 89.2 fL (83.0-100.0); Mean Platelet Volume 10.5 fL (9.4-12.4); Platelet Count 197 K/mcL (140-400); Red Blood Count 4.53 M/mcL (3.82-4.97); Red Cell Distribution Width 12.7 % (11.5-14.5)
[2017-05-17 05:53] LABS: BUN/Creatinine Ratio 16 (6-26); Blood Urea Nitrogen 10 mg/dL (8-23); Calcium 8.8 mg/dL (8.6-10.3); Carbon Dioxide 27 mEq/L (23-29); Chloride 104 mEq/L (98-107); Glucose 150 mg/dL (70-105); Osmolality,Calculated 288 (280-300); Potassium 3.7 mEq/L (3.5-5.1); Sodium 138 mEq/L (136-145); eGFR For African Americans > 60 (> 60); eGFR For Non-African Americans > 60 (> 60)
[2017-05-17] MEDS: *HR* Heparin 5,000 UNIT/ML VIAL SQ SCH ×3 (06:30→20:37)
[2017-05-17] MEDS: Aspirin Enteric Coated 81 MG Tablet PO SCH (08:10)
[2017-05-17] MEDS: Cholecalciferol (D-3) 1,000 UNIT TABLET PO SCH (08:10)
[2017-05-17] MEDS: (Fish Oil 1,000 Mg Softgel) PO SCH ×2 (08:11→08:43)
[2017-05-17] MEDS: VITAMIN A PO SCH ×2 (08:20→08:44)
[2017-05-17] MEDS: Insulin LISPRO 300 UNITS/3 ML VIAL SQ SCH ×4 (08:38→20:48)
[2017-05-17] MEDS ORDERED: Erythromycin OPTH Oint BOTH EYES SCH (09:00)
[2017-05-17] MEDS ORDERED: Ofloxacin OPTH Drops 5 ML BOTTLE LEFT EYE SCH (12:00)
[2017-05-17] MEDS: 0.9 % Sodium Chloride w KCl 20 MEQ/1,000 ML MLS IVC SCH (12:26)
--- NOTE | 2017-05-17 12:47 | Internal Med Progress Note ---
Date of Encounter: 05/17/17 Time of Encounter: 10:00 - Assessment and plan (1) Pneumonia Current Visit: Yes Status: Acute Assessment and plan: Continue with Levaquin. Follow up on blood cultures. Check urine strep and Legionella. Follow-up on those. She is having a dry cough so she is not able to give us a sputum sample wean off oxygen as tolerated Qualifiers: Pneumonia type: aspiration pneumonia Aspiration pneumonia type: unspecified Laterality: bilateral Lung location: unspecified part of lung Qualified Code(s): J69.0 - Pneumonitis due to inhalation of food and vomit (2) Urinary tract infection Current Visit: Yes Status: Acute Assessment and plan: Continue Levaquin and follow up on cultures. Qualifiers: Urinary tract infection type: acute cystitis Hematuria presence: without hematuria Qualified Code(s): N30.00 - Acute cystitis without hematuria (3) Conjunctivitis Current Visit: Yes Status: Acute Assessment and plan: We will add offloxacin eyedrops Qualifiers: Conjunctivitis type: acute Acute conjunctivitis type: unspecified Laterality: bilateral Qualified Code(s): H10.33 - Unspecified acute conjunctivitis, bilateral (4) Diabetes mellitus Current Visit: Yes Status: Acute Assessment and plan: Continue with insulin sliding scale. Continue with Accu-Cheks. Qualifiers: Diabetes mellitus type: type 2 Diabetes mellitus complication status: without complication Diabetes mellitus snf insulin use: without termite control representative use Qualified Code(s): E11.9 - Type 2 diabetes mellitus without complications (5) HTN (hypertension) Current Visit: Yes Status: Chronic Assessment and plan: Blood pressure stable. Patient is on metoprolol. Qualifiers: Hypertension type: essential hypertension Qualified Code(s): I10 - Essential (primary) hypertension (6) Hyperlipidemia Current Visit: Yes Status: Chronic Assessment and plan: Continue atorvastatin Qualifiers: Hyperlipidemia type: pure hypercholesterolemia Qualified Code(s): E78.00 - Pure hypercholesterolemia, unspecified; E78.0 - Pure hypercholesterolemia (7) DVT prophylaxis Current Visit: No Status: Acute Assessment and plan: Heparin subcutaneous - Subjective Interval history: Patient was seen and examined. She was admitted yesterday with community- acquired pneumonia. She continues to have clear drainage coming out of both eyes. She has been afebrile. She is on a couple liters of nasal cannula oxygen. Has been afebrile. - Constitutional Vitals: Temp Pulse Resp BP Pulse Ox 98.3 F 69 20 115/75 95 05/17/17 11:02 05/17/17 11:02 05/17/17 11:02 05/17/17 11:02 05/17/17 11:02 Exam: GEN: NAD, clear colored drainage out of both eyes CVS: RRR. S1, S2, No m/r/g RESP: Diminished and coarse at the bases. ABD: Soft, NT, ND, +BS EXT: No edema. 2+ DP. No rashes NEURO: Nonfocal Internal Medicine: Result - Labs CBC & Chem 7: 05/17/17 05:11 05/17/17 05:11 Labs: Short CBC 05/17/17 Range/Units 05:11 WBC 10.7 (4.3-11.1) K/mcL Hgb 13.4 (11.5-15.4) g/dL Hct 40.4 (35.3-44.9) % Plt Count 197 (140-400) K/mcL BMP 05/17/17 05:11 Sodium 138 Potassium 3.7 Chloride 104 Carbon Dioxide 27 BUN 10 Creatinine 0.64 Glucose 150 H Calcium 8.8 Consult Discharge Plan - Plan Referrals: Clifton Shannon Jr, MD [Primary Care Provider] -
[2017-05-17] MEDS: Ofloxacin OPTH Drops 5 ML BOTTLE BOTH EYES SCH ×4 (13:35→23:11)
[2017-05-17] MEDS: Levofloxacin 500 MG/100 ML 500 MG/100 ML BAG IVPB SCH (18:26)
[2017-05-18] MEDS: 0.9 % Sodium Chloride w KCl 20 MEQ/1,000 ML MLS IVC SCH ×2 (00:10→19:43)
[2017-05-18] MEDS: Ofloxacin OPTH Drops 5 ML BOTTLE BOTH EYES SCH ×5 (03:44→21:21)
[2017-05-18 04:50] LABS: Basophils # 0.1 K/mcL (0.0-0.2); Basophils % 0.5 %; Eosinophils # 0.5 K/mcL (0.0-0.6); Eosinophils % 4.9 %; Hematocrit 36.2 % (35.3-44.9); Hemoglobin 11.9 g/dL (11.5-15.4); Immature Granulocytes % 0.3 % (0-4); Lymphocytes # 4.1 K/mcL (0.6-4.6); Lymphocytes % 38.4 %; Mean Corpuscular HGB Conc 32.9 g/dL (31.6-35.5); Mean Corpuscular Hemoglobin 29.8 pg (28.0-33.3); Mean Corpuscular Volume 90.7 fL (83.0-100.0); Mean Platelet Volume 10.4 fL (9.4-12.4); Monocytes # 1.1 K/mcL (0.0-1.3); Monocytes % 9.8 %; Platelet Count 190 K/mcL (140-400); Red Blood Count 3.99 M/mcL (3.82-4.97); Red Cell Distribution Width 12.8 % (11.5-14.5); Segmented Neutrophils % 46.1 %
[2017-05-18 05:03] LABS: BUN/Creatinine Ratio 18 (6-26); Blood Urea Nitrogen 12 mg/dL (8-23); Calcium 8.5 mg/dL (8.6-10.3); Carbon Dioxide 27 mEq/L (23-29); Chloride 109 mEq/L (98-107); Glucose 149 mg/dL (70-105); Osmolality,Calculated 293 (280-300); Sodium 140 mEq/L (136-145); eGFR For African Americans > 60 (> 60); eGFR For Non-African Americans > 60 (> 60)
[2017-05-18] MEDS: *HR* Heparin 5,000 UNIT/ML VIAL SQ SCH ×3 (05:44→21:20)
[2017-05-18] MEDS: VITAMIN A PO SCH (07:55)
[2017-05-18] MEDS: Aspirin Enteric Coated 81 MG Tablet PO SCH (07:55)
[2017-05-18] MEDS: Cholecalciferol (D-3) 1,000 UNIT TABLET PO SCH (07:55)
[2017-05-18] MEDS: (Fish Oil 1,000 Mg Softgel) PO SCH (07:55)
[2017-05-18] MEDS: Insulin LISPRO 300 UNITS/3 ML VIAL SQ SCH ×4 (07:56→21:17)
[2017-05-18] MEDS ORDERED: Ipratropium/Albuterol Neb 3 ML IH PRN (10:22)
--- NOTE | 2017-05-18 10:28 | Internal Med Progress Note ---
Date of Encounter: 05/18/17 Time of Encounter: 10:25 - Assessment and plan (1) Pneumonia Current Visit: Yes Status: Acute Assessment and plan: Continue with Levaquin IV today. She may possibly be able to discharge tomorrow. Wean off oxygen as tolerated. Continue with nebulizers treatments. Urine strep and legionella are negative. The rest of her cultures have been negative. We will get physical therapy to see. when necessary. F Qualifiers: Pneumonia type: aspiration pneumonia Aspiration pneumonia type: unspecified Laterality: bilateral Lung location: unspecified part of lung Qualified Code(s): J69.0 - Pneumonitis due to inhalation of food and vomit (2) Urinary tract infection Current Visit: Yes Status: Acute Assessment and plan: Continue Levaquin and follow up on cultures. Her urine does not look really that dirty. Levaquin should cover the pneumonia and urinary tract infection. Qualifiers: Urinary tract infection type: acute cystitis Hematuria presence: without hematuria Qualified Code(s): N30.00 - Acute cystitis without hematuria (3) Conjunctivitis Current Visit: Yes Status: Acute Assessment and plan: We continue offloxacin eyedrops Qualifiers: Conjunctivitis type: acute Acute conjunctivitis type: unspecified Laterality: bilateral Qualified Code(s): H10.33 - Unspecified acute conjunctivitis, bilateral (4) Diabetes mellitus Current Visit: Yes Status: Acute Assessment and plan: Continue with insulin sliding scale. Continue with Accu-Cheks. Qualifiers: Diabetes mellitus type: type 2 Diabetes mellitus complication status: without complication Diabetes mellitus rough rice tender insulin use: without rough rice tender use Qualified Code(s): E11.9 - Type 2 diabetes mellitus without complications (5) HTN (hypertension) Current Visit: Yes Status: Chronic Assessment and plan: Blood pressure stable. Patient is on metoprolol. Qualifiers: Hypertension type: essential hypertension Qualified Code(s): I10 - Essential (primary) hypertension (6) Hyperlipidemia Current Visit: Yes Status: Chronic Assessment and plan: Continue atorvastatin Qualifiers: Hyperlipidemia type: pure hypercholesterolemia Qualified Code(s): E78.00 - Pure hypercholesterolemia, unspecified; E78.0 - Pure hypercholesterolemia (7) DVT prophylaxis Current Visit: No Status: Acute Assessment and plan: Heparin subcutaneous - Subjective Interval history: Patient was seen and examined. She feels better. Continues to be on oxygen 1- 2 L. She is not oxygen dependent at home. She says her drainage from both eyes is better. She has not been out of bed and says she has back pain. She has been afebrile. - Constitutional Vitals: Temp Pulse Resp BP Pulse Ox 98.3 F 54 16 106/56 97 05/18/17 06:54 05/18/17 06:54 05/18/17 06:54 05/18/17 06:54 05/18/17 06:54 Exam: GEN: NAD, clear colored drainage out of both eyes CVS: RRR. S1, S2, No m/r/g RESP: Diminished and coarse at the bases. ABD: Soft, NT, ND, +BS EXT: No edema. 2+ DP. No rashes NEURO: Nonfocal Internal Medicine: Result - Labs CBC & Chem 7: 05/18/17 04:30 05/18/17 04:30 Labs: Short CBC 05/18/17 Range/Units 04:30 WBC 10.7 (4.3-11.1) K/mcL Hgb 11.9 D (11.5-15.4) g/dL Hct 36.2 (35.3-44.9) % Plt Count 190 (140-400) K/mcL Neutrophils # 5.0 (1.6-8.9) K/mcL BMP 05/18/17 04:30 Sodium 140 Potassium 4.0 Chloride 109 H Carbon Dioxide 27 BUN 12 Creatinine 0.68 Glucose 149 H Calcium 8.5 L Consult Discharge Plan - Plan Referrals: Clifton Shannon Jr, MD [Primary Care Provider] -
[2017-05-18] MEDS: Levofloxacin 500 MG/100 ML 500 MG/100 ML BAG IVPB SCH (19:27)
[2017-05-19] MEDS: Ofloxacin OPTH Drops 5 ML BOTTLE BOTH EYES SCH ×4 (01:46→12:34)
[2017-05-19] MEDS: *HR* Heparin 5,000 UNIT/ML VIAL SQ SCH (05:16)
[2017-05-19 06:00] LABS: BUN/Creatinine Ratio 16 (6-26); Blood Urea Nitrogen 10 mg/dL (8-23); Calcium 8.7 mg/dL (8.6-10.3); Carbon Dioxide 25 mEq/L (23-29); Chloride 108 mEq/L (98-107); Glucose 152 mg/dL (70-105); Osmolality,Calculated 290 (280-300); Potassium 4.1 mEq/L (3.5-5.1); Sodium 139 mEq/L (136-145); eGFR For African Americans > 60 (> 60); eGFR For Non-African Americans > 60 (> 60)
[2017-05-19 06:34] LABS: Basophils % 0.3 %; Eosinophils # 0.3 K/mcL (0.0-0.6); Eosinophils % 3.3 %; Hematocrit 35.1 % (35.3-44.9); Hemoglobin 11.5 g/dL (11.5-15.4); Immature Granulocytes % 0.6 % (0-4); Lymphocytes # 3.1 K/mcL (0.6-4.6); Lymphocytes % 35.2 %; Mean Corpuscular HGB Conc 32.8 g/dL (31.6-35.5); Mean Corpuscular Hemoglobin 29.6 pg (28.0-33.3); Mean Corpuscular Volume 90.2 fL (83.0-100.0); Mean Platelet Volume 11.1 fL (9.4-12.4); Monocytes # 0.9 K/mcL (0.0-1.3); Monocytes % 10.6 %; Neutrophils # 4.3 K/mcL (1.6-8.9); Platelet Count 210 K/mcL (140-400); Red Blood Count 3.89 M/mcL (3.82-4.97)
[2017-05-19] MEDS: VITAMIN A PO SCH (08:06)
[2017-05-19] MEDS: Cholecalciferol (D-3) 1,000 UNIT TABLET PO SCH (08:06)
[2017-05-19] MEDS: (Fish Oil 1,000 Mg Softgel) PO SCH (08:06)
[2017-05-19] MEDS: Aspirin Enteric Coated 81 MG Tablet PO SCH (08:06)
[2017-05-19] MEDS: Insulin LISPRO 300 UNITS/3 ML VIAL SQ SCH ×2 (08:07→12:02)
[2017-05-19] MEDS ORDERED: Ipratropium/Albuterol Neb 3 ML IH ONE (11:32)
--- NOTE | 2017-05-19 11:42 | Discharge Summary ---
Date of Encounter: 05/19/17 Time of Encounter: 11:40 - Discharge Diagnosis (1) Pneumonia Priority: Primary Status: Acute Qualifiers: Pneumonia type: aspiration pneumonia Aspiration pneumonia type: unspecified Laterality: bilateral Lung location: unspecified part of lung Qualified Code(s): J69.0 - Pneumonitis due to inhalation of food and vomit (2) Urinary tract infection Priority: Secondary Status: Acute Qualifiers: Urinary tract infection type: acute cystitis Hematuria presence: without hematuria Qualified Code(s): N30.00 - Acute cystitis without hematuria (3) Conjunctivitis Priority: Secondary Status: Acute Qualifiers: Conjunctivitis type: acute Acute conjunctivitis type: unspecified Laterality: bilateral Qualified Code(s): H10.33 - Unspecified acute conjunctivitis, bilateral (4) Diabetes mellitus Priority: Secondary Status: Acute Qualifiers: Diabetes mellitus type: type 2 Diabetes mellitus complication status: without complication Diabetes mellitus correction insulin use: without truck terminal manager use Qualified Code(s): E11.9 - Type 2 diabetes mellitus without complications (5) HTN (hypertension) Priority: Secondary Status: Chronic Qualifiers: Hypertension type: essential hypertension Qualified Code(s): I10 - Essential (primary) hypertension (6) Hyperlipidemia Priority: Secondary Status: Chronic Qualifiers: Hyperlipidemia type: pure hypercholesterolemia Qualified Code(s): E78.00 - Pure hypercholesterolemia, unspecified; E78.0 - Pure hypercholesterolemia - Discharge Medications Prescriptions: Ofloxacin OPTH Drops [Ocuflox] 1 drop BOTH EYES Q4HR 7 Days #1 bottle Albuterol Sulfate [Albuterol Inhaler] 0 puff IH Q6HR #1 hfa.aer.ad Benzonatate [Tessalon] 200 mg PO TID #30 capsule Home Medications: Aspirin Enteric Coated [Aspirin EC] 81 mg PO DAILY 08/28/16 [History] Atorvastatin Calcium [Lipitor] 80 mg PO HS 08/28/16 [History] Cholecalciferol (D-3) [Vitamin D] 1,000 unit PO DAILY 08/28/16 [History] [place]-3/Dha/Epa/Fish Oil [Fish Oil 1,000 mg Softgel] 1,000 mg PO DAILY 08/28/16 [History] Vitamin A 10,000 unit PO DAILY 08/28/16 [History] hydroCHLOROthiazide [Hydrochlorothiazide] 25 mg PO DAILY 08/28/16 [History] metFORMIN [Glucophage] 500 mg PO BID 02/23/17 [History] Metoprolol [Lopressor] 25 mg PO BID 05/16/17 [History] Albuterol Sulfate [Albuterol Inhaler] 0 puff IH Q6HR #1 hfa.aer.ad 05/19/17 [Rx] Benzonatate [Tessalon] 200 mg PO TID #30 capsule 05/19/17 [Rx] Levofloxacin [Levaquin] 750 mg PO DAILY #5 tablet 05/19/17 [Rx] Ofloxacin OPTH Drops [Ocuflox] 1 drop BOTH EYES Q4HR 7 Days #1 bottle 05/19/17 [ Rx] Allergies/Adverse Reactions: 3 Allergy/AdvReac Type Severity Reaction Status Date / Time Sulfa (Sulfonamide Allergy Hives Verified 02/23/17 08:35 Antibiotics) Date of admission: 05/18/17 15:34 Primary care physician: Clifton Shannon Jr, MD Discharging clinician: Sylvester Wilhelm - Patient Status Disposition: Home, Self-Care Condition: Good Functional capacity at discharge: independent ambulation Overall status at discharge: patient is progressing back to baseline - Discharge Instructions Follow Up With: Josie Marshall CNP [Advanced Practice Nurse] - 05/26/17 1:45 pm - Diet and Activity Activity: increase activity as tolerated Diet: advance to your usual diet Hospital course: Ms. Hernandez is a 72 year old female with PMH of HTN and CAD presented with cough, lethargy, and subjective fever for several days. She was in her usual health state and developed fever, cough and lack of energy since last Monday. She denies any sick contact and also got flu shot this year. She also has associate muscle pain. She stated that cough with white mucus. She also has mild dysuria, but denies urgency or frequency. She also has eye pain which she attributed to pink eye. She denies chest pain, palpitation, or dizziness. Labs were significant for leukocytosis of 12.8, Tmax of 101.2. Urinalysis was consistent with UTI. She was treated for both conditions with Levaquin IV. Patient did need oxygen upon admission but was able to wean off of it after two days. She was started on oflaxacin eye drops for conjunctivitis. She was discharged home in stable condition to finish total of 7 days of Levaquin therapy, oflaxacin eye drops, and albuterol hfa inhaler because she felt relief from Duo Neb therapy. - Time Spent with Patient Total time spent providing and/or coordinating discharge services: - Constitutional Vitals: Temp Pulse Resp BP Pulse Ox 98.1 F 60 14 114/66 97 05/19/17 07:10 05/19/17 07:10 05/19/17 07:10 05/19/17 07:10 05/19/17 07:10 General appearance: Present: A&O X 3, no acute distress - Respiratory Respiratory exam: Present: CTAB. Absent: accessory muscle use, rales, rhonchi, wheezes - Cardiovascular Cardiovascular exam: Present: RRR, +S1, +S2. Absent: diastolic murmur, gallop, rubs, systolic murmur - Extremities Exam Extremities exam: Present: warm, radial pulses palpable and symmetrical. Absent : calf tenderness, cyanotic, pedal edema
[2017-05-19 12:01] VITALS: BP 122/67
[2017-05-19] MEDS ORDERED: levoFLOXacin 750 MG TABLET PO SCH (19:00)
== END 2017-05-19 15:00 | disposition home or self-care (01) | DRG 178 ==
LOC: 3ANU 14:37 → EMEROO 14:37 → 3ANU 21:28
PROVIDERS: ADMIT Internal Medicine; ATTEND Internal Medicine